=== PATIENT | male | born 1980 | race Caucasian/White ===

== ENCOUNTER 2017-10-26 10:35 | Emergency (ER) | payer OTHER ==
[~2017-10-26] VITALS: Ht 172.7 cm; Wt 70.3 kg
--- NOTE | 2017-10-26 10:55 | NUR ---
PT SEEN AND EXAMINED BY MD. CHIEF C/O IS COUGHING WITH PAIN ON HIS CHEST. EKG DONE ORDERED. HR-SR NO ECTOPY. SBP 112/64 AND O2SAT ON RA IS 100%. AFEBRILE.
--- NOTE | 2017-10-26 11:30 | NUR ---
TO XRAY VIA W/C FOR CHEST.
--- NOTE | 2017-10-26 12:10 | NUR ---
DISCHARGE INSTRUCTION AND PRESCRIPTION GIVEN TO THE PT WITH GOOD UNDERSTANDING.
--- NOTE | 2017-10-26 12:20 | NUR ---
DISCHARGED HOME ACCOMPANIED BY . CONDITION STABLE.
[2017-10-26 13:11] VITALS: BP 112/62
== END 2017-10-26 12:20 | disposition home or self-care (01) ==
LOC: ER 10:35
DX: J02.9 Acute pharyngitis, unspecified (principal); R07.9 Chest pain, unspecified; Z88.0 Allergy status to penicillin; M79.1 Myalgia
CPT/HCPCS: 71046; 93005; 99284; A4663